=== PATIENT | male | born 1990 | race Caucasian/White ===

== ENCOUNTER 2016-05-31 00:33 | Emergency (ER) | payer MEDICAID ==
[2016-05-31 04:46] VITALS: BP 149/66
== END 2016-05-31 04:46 | disposition home or self-care (01) ==
LOC: ED 00:33
DX: J32.9 Chronic sinusitis, unspecified (principal); J40 Bronchitis, not specified as acute or chronic; R21 Rash and other nonspecific skin eruption
CPT/HCPCS: J7613; J7644

== ENCOUNTER 2016-11-30 18:58 | Emergency (ER) | payer OTHER ==
[2016-11-30 21:11] VITALS: BP 130/73
== END 2016-11-30 21:11 | disposition home or self-care (01) ==
LOC: ED 18:58
DX: M79.5 Residual foreign body in soft tissue (principal); R03.0 Elevated blood-pressure reading, without diagnosis of hypertension; F12.10 Cannabis abuse, uncomplicated
CPT/HCPCS: 90715

== ENCOUNTER 2019-03-27 14:56 | Emergency (ER) | payer SELFPAY ==
[~2019-03-27] VITALS: Ht 175.3 cm; Wt 99.3 kg
[2019-03-27 15:16] VITALS: BP 126/69; Ht 175.3 cm; Wt 99.3 kg
== END 2019-03-27 16:30 | disposition home or self-care (01) ==
LOC: ED 14:56
DX: K60.2 Anal fissure, unspecified (principal)

== ENCOUNTER 2019-05-07 17:16 | Emergency (ER) | payer SELFPAY ==
[~2019-05-07] VITALS: Ht 175.3 cm; Wt 97.5 kg
[2019-05-07 17:26] VITALS: Ht 175.3 cm; Wt 97.5 kg
[2019-05-07 19:07] VITALS: BP 119/78
== END 2019-05-07 19:07 | disposition home or self-care (01) ==
LOC: ED 17:16
DX: M54.5 Low back pain (principal)
CPT/HCPCS: J1885